=== PATIENT | female | born 1940 | race Caucasian/White ===

== ENCOUNTER 2021-05-01 20:44 | Inpatient (IN) | payer OTHER, BC, SELFPAY ==
[~2021-05-01] VITALS: Ht 157.5 cm; Wt 61.7 kg
[~2021-05-01 20:44] MED LIST: ASA81 PO; CORCR20 PO; DONE10TA44 PO; FURO40TA5 PO; LISI10TA29 PO
[2021-05-01 20:51] VITALS: BP_SYST 92
[2021-05-02 00:56] LABS: BASOPHILS % (AUTO) 0.3 % (0.0-2.0); EOSINOPHILS # (AUTO) 0.1 K/uL (0.0-0.4); EOSINOPHILS % (AUTO) 1.1 % (0.0-4.0); HEMATOCRIT 48.3 % (36-48); HEMOGLOBIN 15.9 g/dL (12.0-16.0); LYMPHOCYTES % (AUTO) 15.3 % (20.5-51.5); MEAN CORPUSCULAR HEMOGLOBIN 31 pg (27-31); MEAN CORPUSCULAR HGB CONC 33 % (32-36); MEAN CORPUSCULAR VOLUME 94 fL (79.0-98.0); MONOCYTES # (AUTO) 0.5 K/uL (0.0-1.0); MONOCYTES % (AUTO) 7.5 % (1.7-9.3); NEUTROPHILS % (AUTO) 75.8 % (40.0-70.0); PLATELET COUNT (AUTO) 133 K/uL (130-430); RED BLOOD CELL COUNT(AUTO) 5.13 MIL/uL (4.2-6.2); RED CELL DISTRIBUTION WIDTH 17.1 % (9.0-15.0); WHITE BLOOD COUNT (AUTO) 6.6 K/uL (4.8-10.8)
[2021-05-02 01:18] LABS: ANION GAP 11 (5-15); CALCIUM 9.7 mg/dL (8.4-11.0); CHLORIDE 98 mmol/L (98-107); CREATININE 1.59 mg/dL (0.55-1.30); GLUCOSE 108 mg/dL (70-99); POTASSIUM 4.1 mmol/L (3.5-5.1); SODIUM SERUM 135 mmol/L (136-145); UREA NITROGEN, BLOOD 46 mg/dL (8-21)
[2021-05-02 01:23] LABS: ALANINE AMINOTRANSFERASE 287 U/L (12-78); ALBUMIN 3.4 g/dL (3.4-4.8); ASPARTATE AMINOTRANSFERASE 214 U/L (10-37); TOTAL BILIRUBIN 1.1 mg/dL (0.0-1.0)
--- NOTE | 2021-05-02 01:25 | NUR ---
Patient to ER bed 7 to gown for evaluation. Side rails up. Report given to self.
--- NOTE | 2021-05-02 01:38 | NUR ---
# 20 gauge angiocath placed to 20. Use of asceptic technique. Opsite placed over site. Blood return noted. Flushed with 10 cc of normal saline. No evidence of infiltration noted. Patient tolerated well.
--- NOTE | 2021-05-02 01:48 | NUR ---
EKG performed at by Eduin. Physician given copy of EKG for review.
[2021-05-02 02:20] LABS: BILIRUBIN,URINE NEGATIVE (NEGATIVE); BLOOD, URINE NEGATIVE (NEGATIVE); CLARITY/URINE CLEAR (CLEAR); COLOR,URINE YELLOW (YELLOW); GLUCOSE,URINE NEGATIVE (NEGATIVE); KETONES,URINE NEGATIVE (NEGATIVE); LEUKOCYTE ESTERASE ,URINE NEGATIVE (NEGATIVE); NITRITE, URINE NEGATIVE (NEGATIVE); PROTEIN URINE 1+ (NEGATIVE); UROBILINOGEN,URINE 0.2 (0.2-1.0)
[2021-05-02] MEDS ORDERED: NACL 0.9% 1,000 ML IV ONE (03:30)
[2021-05-02 06:33] LABS: BACTERIA,URINE RARE /HPF (None Seen); RBC,URINE 0-3 /HPF (0-3); WBC,URINE 0-3 /HPF (0-3)
[2021-05-02 06:34] LABS: MUCUS,URINE 1+ /LPF (None Seen)
--- NOTE | 2021-05-02 07:36 | NUR ---
Made contact with patient. Easily arousable to voice. Alert and oriented to person, place and situation. COVID swab collected at bedside and sent to lab. Informed we are awaiting results to send her to hospital room. Understanding verbalized. Will continue to monitor.
[2021-05-02] MEDS ORDERED: ACETAMINOPHEN 325 MG TABLET PO PRN (08:00)
[2021-05-02] MEDS ORDERED: NACL 0.9% 1,000 ML IV SCH (08:00)
[2021-05-02] MEDS ORDERED: ALBUTEROL SULFATE 0.083% 2.5 MG/3 ML VIAL.NEB INH PRN (08:00)
--- NOTE | 2021-05-02 08:20 | NUR ---
Ultrasound being done at bedside
--- NOTE | 2021-05-02 09:16 | NUR ---
Patient will be admitted to care of Dr Peñaloza. Admitted to med surg unit. Will go to room 130A. Belongings list completed. Complete and up to date summary report printed. SBAR report to be given at bedside with opportunity for questions.
--- NOTE | 2021-05-02 09:20 | NUR ---
Patient's heart rate noted to be 130's. EKG to be done stat.
[2021-05-02 09:27] LABS: BASOPHILS % (AUTO) 0.1 % (0.0-2.0); EOSINOPHILS # (AUTO) 0.1 K/uL (0.0-0.4); EOSINOPHILS % (AUTO) 0.8 % (0.0-4.0); HEMATOCRIT 51.6 % (36-48); HEMOGLOBIN 16.7 g/dL (12.0-16.0); LYMPHOCYTES % (AUTO) 13.1 % (20.5-51.5); MEAN CORPUSCULAR HEMOGLOBIN 31 pg (27-31); MEAN CORPUSCULAR HGB CONC 32 % (32-36); MEAN CORPUSCULAR VOLUME 95 fL (79.0-98.0); MONOCYTES # (AUTO) 0.5 K/uL (0.0-1.0); MONOCYTES % (AUTO) 6.1 % (1.7-9.3); NEUTROPHILS # (AUTO) 5.9 K/uL (1.8-7.7); NEUTROPHILS % (AUTO) 79.9 % (40.0-70.0); PLATELET COUNT (AUTO) 137 K/uL (130-430); RED BLOOD CELL COUNT(AUTO) 5.45 MIL/uL (4.2-6.2); RED CELL DISTRIBUTION WIDTH 17.8 % (9.0-15.0); WHITE BLOOD COUNT (AUTO) 7.4 K/uL (4.8-10.8)
--- NOTE | 2021-05-02 09:54 | NUR ---
Spoke with Dr Peñaloza to inform patient is is AFib confirmed by stat EKG done. Orders received. This RN to carry out. Addendum: 05/02/21 at 1239 by [email or web address] *Is in
[2021-05-02] MEDS ORDERED: dilTIAZem HCL IVP 5 MG/ML VIAL IVP ONE (10:00)
--- NOTE | 2021-05-02 10:00 | NUR ---
Patient's level of care upgraded to tele. Orders changed in EMR.
[2021-05-02 10:01] LABS: ALANINE AMINOTRANSFERASE 281 U/L (12-78); ALBUMIN 3.3 g/dL (3.4-4.8); ANION GAP 14 (5-15); ASPARTATE AMINOTRANSFERASE 178 U/L (10-37); CALCIUM 9.4 mg/dL (8.4-11.0); CHLORIDE 101 mmol/L (98-107); GLUCOSE 107 mg/dL (70-99); POTASSIUM 4.6 mmol/L (3.5-5.1); SODIUM SERUM 136 mmol/L (136-145); UREA NITROGEN, BLOOD 45 mg/dL (8-21)
[2021-05-02] MEDS ORDERED: cefTRIAXone 1 GM IVPB PREMIX 50 ML IV ONE (11:15)
[2021-05-02] MEDS ORDERED: DILTIAZEM HCL 30 MG TABLET PO ONE (11:30)
--- NOTE | 2021-05-02 13:45 | NUR ---
Received pt from ER at 1345 on stretcher. A+Ox1- name only. Pt denies pain. IV noted to R arm. CSMW- pt appears pale. No headahce, dizziness, chest pain, numbness, tingling or edema. Lungs diminished No SOB/cough noted. 100% RA. No palpitations reported from pt. BSx4. LBM May 01. Void QS. No N+V. No skin concerns. L breast swollen/firm. Not OOB. Tele insitu. pt knows top ring call pratt to get up. Bed alarm on. VSS. Will continue to monitor.
[2021-05-02 14:00] VITALS: BP_SYST 105
[2021-05-02 14:01] VITALS: BP_SYST 105
[2021-05-02 14:03] VITALS: BP_SYST 105
[2021-05-02 14:26] LABS: FREE T4 (FREE THYROXINE) 1.1 ng/dl (0.8-1.5)
[2021-05-02 14:27] LABS: THYROID STIMULATING HORMONE 8.36 uIu/mL (0.36-3.74)
[2021-05-02] MEDS ORDERED: CARVEDILOL 6.25 MG TABLET (COREG) PO ONE (14:30)
[2021-05-02 14:40] LABS: DIGOXIN < 0.1 ng/mL (0.80-2.00)
[2021-05-02] MEDS ORDERED: LOSA25TA3 PO (15:37)
[2021-05-02] MEDS ORDERED: LEVO25TA7 PO (15:39)
[2021-05-02] MEDS ORDERED: MIRT-91 PO (15:39)
[2021-05-02] MEDS ORDERED: DIGO125T20 PO (15:42)
[2021-05-02] MEDS ORDERED: SPIR25OR PO (15:42)
[2021-05-02] MEDS ORDERED: FAMO20TA8 PO (15:42)
[2021-05-02] MEDS ORDERED: RIVA15TA PO (15:44)
[2021-05-02] MEDS ORDERED: VITD400 PO (15:44)
[2021-05-02] MEDS ORDERED: POTA-197 PO (15:46)
[2021-05-02] MEDS: NACL 0.9% 1,000 ML IV SCH (15:49)
[2021-05-02] MEDS: DILTIAZEM HCL 30 MG TABLET PO SCH ×2 (15:59→22:36)
--- NOTE | 2021-05-02 18:09 | NUR ---
Pt resting in bed. No voiced concerns. Bed in low position. Call pratt in reach. Bed alarm on. IVF infusing. Will continue to monitor.
[2021-05-02] MEDS: RIVAROXABAN 15 MG TABLET PO SCH (18:37)
[2021-05-02 20:15] VITALS: BP_SYST 86
[2021-05-02] MEDS: MIRTAZAPINE 15 MG TABLET PO SCH (21:06)
[2021-05-02] MEDS: CARVEDILOL 6.25 MG TABLET (COREG) PO SCH (21:38)
[2021-05-03 00:39] VITALS: BP_SYST 96
[2021-05-03] MEDS: NACL 0.9% 1,000 ML IV SCH (03:09)
[2021-05-03 06:06] LABS: HEPATITIS A AB, IgM Negative (Negative); HEPATITIS B CORE AB, IgM Negative (Negative); HEPATITIS B SURFACE AG Negative (Negative)
[2021-05-03] MEDS: DILTIAZEM HCL 30 MG TABLET PO SCH ×3 (06:33→22:00)
--- NOTE | 2021-05-03 07:08 | NUR ---
Handoff with ZACKERY Putnam. Aldair Wayne RN
[2021-05-03 07:18] LABS: BASOPHILS % (AUTO) 0.1 % (0.0-2.0); EOSINOPHILS % (AUTO) 0.4 % (0.0-4.0); HEMATOCRIT 45.6 % (36-48); HEMOGLOBIN 15.1 g/dL (12.0-16.0); LYMPHOCYTES # (AUTO) 0.7 K/uL (1.0-5.5); LYMPHOCYTES % (AUTO) 11.1 % (20.5-51.5); MEAN CORPUSCULAR HEMOGLOBIN 31 pg (27-31); MEAN CORPUSCULAR HGB CONC 33 % (32-36); MONOCYTES # (AUTO) 0.3 K/uL (0.0-1.0); NEUTROPHILS # (AUTO) 5.5 K/uL (1.8-7.7); NEUTROPHILS % (AUTO) 83.4 % (40.0-70.0); RED BLOOD CELL COUNT(AUTO) 4.91 MIL/uL (4.2-6.2); RED CELL DISTRIBUTION WIDTH 16.8 % (9.0-15.0); WHITE BLOOD COUNT (AUTO) 6.6 K/uL (4.8-10.8)
[2021-05-03 07:35] LABS: ALANINE AMINOTRANSFERASE 215 U/L (12-78); ALBUMIN 2.9 g/dL (3.4-4.8); ANION GAP 15 (5-15); ASPARTATE AMINOTRANSFERASE 116 U/L (10-37); CALCIUM 8.5 mg/dL (8.4-11.0); CHLORIDE 102 mmol/L (98-107); CREATININE 1.32 mg/dL (0.55-1.30); GLUCOSE 103 mg/dL (70-99); LIPASE 373 U/L (73-393); POTASSIUM 4.5 mmol/L (3.5-5.1); SODIUM SERUM 133 mmol/L (136-145); UREA NITROGEN, BLOOD 43 mg/dL (8-21)
[2021-05-03] MEDS: FAMOTIDINE 20 MG TABLET PO SCH (08:26)
[2021-05-03] MEDS: CARVEDILOL 6.25 MG TABLET (COREG) PO SCH ×2 (08:27→21:04)
[2021-05-03 09:00] VITALS: BP_SYST 114
--- NOTE | 2021-05-03 09:00 | NUR ---
Pt laying in bed at 0700. A+Ox3- not to time. Pt denies pain. IV noted- S/L. CSMW- pt appears pale. No headahce, dizziness, chest pain, numbness, tingling or edema. Lungs diminished. No SOB/cough noted. 93% RA. No palpitations reported from pt. BSx4. LBM May 01. Void QS. No N+V. No skin concerns. Not OOB. Tele insitu. pt knows top ring call pratt to get up. R arm dressing from tape being pulled off/IV. Bed alarm on. VSS. Will continue to monitor.
[2021-05-03 09:48] LABS: MEAN CORPUSCULAR VOLUME 93 fL (79.0-98.0)
[2021-05-03 12:03] VITALS: BP_SYST 156
[2021-05-03 12:55] LABS: PLATELET COUNT (AUTO) 113 K/uL (130-430)
--- NOTE | 2021-05-03 14:56 | NUR ---
Call placed to Marina Moreno [phone]-patient's daughter to discuss DC planning-left message and asked for return call
[2021-05-03 16:21] VITALS: BP_SYST 137
--- NOTE | 2021-05-03 16:46 | NUR ---
paged re: IV pulled out- midline?
--- NOTE | 2021-05-03 18:04 | NUR ---
Pt resting in bed. No voiced concerns. Bed in low position. Call pratt in reach. Bed alarm on. Will continue to monitor.
[2021-05-03] MEDS: RIVAROXABAN 15 MG TABLET PO SCH (18:14)
--- NOTE | 2021-05-03 19:15 | NUR ---
CHANGE OF SHOFT; endorsed by day shift, no IV access, called Dr. Peñaloza x4 on day shift but no response. no distress. call ligth within reach.
[2021-05-03 20:00] VITALS: BP_SYST 105
--- NOTE | 2021-05-03 20:15 | NUR ---
NOTES: VS checked. ambulated with assist to the restroom and voided. on monitoring tech and shows atrial fib with RVR.on room air, no sob.
[2021-05-03] MEDS: MIRTAZAPINE 15 MG TABLET PO SCH (21:04)
--- NOTE | 2021-05-03 22:55 | NUR ---
NOTES; charge nurse and another RN attempted to insert IV but unsuccessful. called Dr. Barbosa, collections specialist for Dr. Peñaloza. informed about no IV access, encourage oral fluids.
[2021-05-03 23:34] VITALS: BP_SYST 105
--- NOTE | 2021-05-04 00:30 | NUR ---
NOTES: pt. sleeping when made rounds. needs attended. remain on atrial fib ,rate between 110-130.
[2021-05-04] MEDS: NACL 0.9% 1,000 ML IV SCH (01:32)
--- NOTE | 2021-05-04 03:30 | NUR ---
NOTES: pt. awakened, replace battery on the tele monitor. quite disoriented, reoriented to place. condition observed.
[2021-05-04] MEDS: DILTIAZEM HCL 30 MG TABLET PO SCH ×3 (05:58→21:52)
--- NOTE | 2021-05-04 06:40 | NUR ---
CLOSING NOTES; pt. called and assisted to the restroom, pt. very unsteady and weak. fall risk. still no IV access. for further care and assistance. bed aalarm on.
[2021-05-04] MEDS: FAMOTIDINE 20 MG TABLET PO SCH ×2 (08:58→09:02)
[2021-05-04] MEDS: CARVEDILOL 6.25 MG TABLET (COREG) PO SCH (09:52)
[2021-05-04 15:00] VITALS: BP_SYST 97
--- NOTE | 2021-05-04 18:08 | NUR ---
Dietitian Recommendations * Regular diet w/ Ensure Enlive TID (ONS yields 1050 kcal/day, 60 gm protein/day) * Encourage increase PO intakes LP, RD Please refer to Nutrition Assessment for details. Addendum: 05/04/21 at [address] Amended: Links added.
--- NOTE | 2021-05-04 19:30 | NUR ---
CHANGE OF SHIFT; endorsed by day shift. did not void all day. no acute distress. bed alarm on, fall risk.
--- NOTE | 2021-05-04 20:30 | NUR ---
NOTES: pt. called, pt. assisted to [facility], very weak to ambulate. pt. voided with EXCH[employer] UNDERWRITING CONSULTANT help. still no IV access. encourage oral liquids. on court monitor and shows atrial fib/RVR. denies any pain. appears drowsy and sleepy. bed alarm on, fall risk.
[2021-05-04 21:00] VITALS: BP_SYST 128
[2021-05-04] MEDS: MIRTAZAPINE 15 MG TABLET PO SCH (21:44)
[2021-05-04] MEDS: RIVAROXABAN 15 MG TABLET PO SCH (21:50)
[2021-05-05 00:15] VITALS: BP_SYST 108
--- NOTE | 2021-05-05 00:15 | NUR ---
NOTES: been sleeping. no distress. repositioned self, turn to sides.
[2021-05-05] MEDS: CARVEDILOL 6.25 MG TABLET (COREG) PO SCH ×3 (00:25→11:10)
--- NOTE | 2021-05-05 03:30 | NUR ---
NOTES: condition observed, continue to monitor. still on atrial fib,HR over 100.
[2021-05-05 05:45] VITALS: BP_SYST 107
--- NOTE | 2021-05-05 05:51 | NUR ---
Nutrition Update Dragan Scale 18 noted. Pt admitted for Dehydration Diet: Regular BMI: 24.9 kg/m2 RD to follow per nutrition care standards.
[2021-05-05] MEDS: DILTIAZEM HCL 30 MG TABLET PO SCH ×3 (05:53→22:34)
--- NOTE | 2021-05-05 06:00 | NUR ---
NOTES"; HR still up 120-130. asymptomatic. needs attended.
--- NOTE | 2021-05-05 06:53 | NUR ---
CLOSING NOTES; pt. been sleeping most of the night but arousable. been encouraging oral fluids. due medication given. HR still above 100. for further care and assist. will endorse to incoming shift. bed alarm on.
[2021-05-05 08:00] VITALS: BP_SYST 120
[2021-05-05] MEDS: FUROSEMIDE 40 MG TABLET PO SCH ×2 (09:00→11:09)
[2021-05-05] MEDS: FAMOTIDINE 20 MG TABLET PO SCH (09:25)
[2021-05-05 10:36] LABS: BASOPHILS % (AUTO) 0.5 % (0.0-2.0); EOSINOPHILS % (AUTO) 0.3 % (0.0-4.0); HEMATOCRIT 52.2 % (36-48); LYMPHOCYTES # (AUTO) 0.8 K/uL (1.0-5.5); LYMPHOCYTES % (AUTO) 11.1 % (20.5-51.5); MEAN CORPUSCULAR HEMOGLOBIN 31 pg (27-31); MEAN CORPUSCULAR HGB CONC 33 % (32-36); MEAN CORPUSCULAR VOLUME 94 fL (79.0-98.0); MONOCYTES # (AUTO) 0.5 K/uL (0.0-1.0); MONOCYTES % (AUTO) 6.1 % (1.7-9.3); NEUTROPHILS # (AUTO) 6.2 K/uL (1.8-7.7); PLATELET COUNT (AUTO) 116 K/uL (130-430); RED BLOOD CELL COUNT(AUTO) 5.56 MIL/uL (4.2-6.2); RED CELL DISTRIBUTION WIDTH 17.3 % (9.0-15.0); WHITE BLOOD COUNT (AUTO) 7.5 K/uL (4.8-10.8)
[2021-05-05 11:10] LABS: ALANINE AMINOTRANSFERASE 227 U/L (12-78); ALBUMIN 3.4 g/dL (3.4-4.8); ANION GAP 17 (5-15); ASPARTATE AMINOTRANSFERASE 106 U/L (10-37); CHLORIDE 101 mmol/L (98-107); CREATININE 1.41 mg/dL (0.55-1.30); GLUCOSE 98 mg/dL (70-99); SODIUM SERUM 134 mmol/L (136-145); TOTAL BILIRUBIN 1.1 mg/dL (0.0-1.0); UREA NITROGEN, BLOOD 47 mg/dL (8-21)
[2021-05-05 11:17] LABS: POTASSIUM 5.8 mmol/L (3.5-5.1)
[2021-05-05 12:07] VITALS: BP_SYST 116
--- NOTE | 2021-05-05 15:08 | NUR ---
Discharge Planning: DCP faxed pt referral to [facility] [phone].
--- NOTE | 2021-05-05 16:08 | NUR ---
attempted to sit down on chair, tolerated but no sitter to watch her so, placed back to bed, she removes telebox, need to monitor and check every now and then. Heart rate still high at more than 100bpm, refused lunch.
[2021-05-05 16:32] VITALS: BP_SYST 118
[2021-05-05] MEDS: RIVAROXABAN 15 MG TABLET PO SCH (18:08)
[2021-05-05 20:03] VITALS: BP_SYST 155
[2021-05-05] MEDS: MIRTAZAPINE 15 MG TABLET PO SCH (21:33)
[2021-05-06 01:10] VITALS: BP_SYST 105
[2021-05-06] MEDS: DILTIAZEM HCL 30 MG TABLET PO SCH ×2 (05:05→13:52)
--- NOTE | 2021-05-06 07:39 | NUR ---
HANDOFF REPORT WITH ZACKERY ROMAN. ADELSO RICHARDSON RN
[2021-05-06 08:39] VITALS: BP_SYST 105
[2021-05-06] MEDS: FUROSEMIDE 40 MG TABLET PO SCH (08:41)
[2021-05-06] MEDS: FAMOTIDINE 20 MG TABLET PO SCH (08:41)
[2021-05-06] MEDS: CARVEDILOL 6.25 MG TABLET (COREG) PO SCH ×2 (09:00→13:51)
--- NOTE | 2021-05-06 09:40 | NUR ---
HOME WITH HOSPICE: DC HOME WITH HOSPICE ARRANGED. ORDERED BY DR Rocio IBRAHIM.
--- NOTE | 2021-05-06 10:18 | NUR ---
INFORMED RN ABEL THAT THE PATIENT IS OFF THE TELE MONITOR
[2021-05-06 11:59] VITALS: BP_SYST 150
[2021-05-06] MEDS ORDERED: CAR30 PO (12:28)
--- NOTE | 2021-05-06 13:15 | NUR ---
Hospice Agency: Spoke with Fatou from [facility] and has arranged home Hospice and [facility] pick[facility] transport coming in 2hours and daughter Shy was informed.Instructions from [facility] to fax patient's 24 hours home medications list to [phone].
--- NOTE | 2021-05-06 15:34 | NUR ---
[facility] CALLED: SPOKE WITH NED AND [facility] WAS MOVED BETWEEN [phone].
[2021-05-06 15:38] VITALS: BP_SYST 131
[2021-05-06 16:00] VITALS: BP_SYST 131
--- NOTE | 2021-05-06 16:15 | NUR ---
ZACKERY ROMAN INFORMED THAT THE PATIENT IS OFF THE LEADS
--- NOTE | 2021-05-06 16:30 | NUR ---
PATIENT PULLING OUT TELE: PUT BACK TO TELEMETRY,PATIENT KEEPS ON PULLING OUT THE TELE AFTER PUTTING IT BACK.
[2021-05-06] MEDS: RIVAROXABAN 15 MG TABLET PO SCH (17:54)
--- NOTE | 2021-05-06 18:39 | NUR ---
DC HOME WITH HOSPICE: REPORT GIVEN TO FRANCY INSTRUCTIONS PAPER GIVEN TO EMT [facility] AND PERSONAL BELONGINGS GIVEN WELL.NO IV. ID BAND REMOVED AND REPLACED WITH WHITE [facility] . PATIENT'S DAUGHTER NEVIN AWARE WITH TRANSPORTATION ARRANGED BY [facility] GOING HOME.CODE STATUS DNR.PATIENT WAS TRANSPORTED TO HOME VIA [facility] IN STABLE CONDITION.
== END 2021-05-06 18:39 | disposition hospice, home (50) | DRG 309 ==
LOC: SED 20:44 → SMU 05-02 03:58 → STU 05-02 13:25
PROVIDERS: ADMIT Internal Medicine Hospice and Palliative Medicine; ATTEND Internal Medicine Hospice and Palliative Medicine
DX: I48.91 Unspecified atrial fibrillation (principal); I13.0 Hypertensive heart and chronic kidney disease with heart failure and stage 1 through stage 4 chronic kidney disease, or unspecified chronic kidney disease; F03.90 Unspecified dementia, unspecified severity, without behavioral disturbance, psychotic disturbance, mood disturbance, and anxiety; I42.0 Dilated cardiomyopathy; E03.9 Hypothyroidism, unspecified; Z20.822 Contact with and (suspected) exposure to COVID-19; E86.0 Dehydration; I50.9 Heart failure, unspecified; N28.9 Disorder of kidney and ureter, unspecified; R62.7 Adult failure to thrive; N18.2 Chronic kidney disease, stage 2 (mild); Z86.73 Personal history of transient ischemic attack (TIA), and cerebral infarction without residual deficits; Z79.01 Long term (current) use of anticoagulants; Z68.24 Body mass index [BMI] 24.0-24.9, adult
CPT/HCPCS: 36415; 71045; 76700-TC; 80053; 80074; 80162; 81000; 83605; 83690; 83880; 84439; 84443; 85025; 87040-TC; 93005; 93306; 94760; 96361; 96374; 96375; 97116-GP; 97163-GP; 97530-GP; 99285; G0378; J0696; J3490